=== PATIENT | male | born 1975 | race Caucasian/White ===

== ENCOUNTER 2016-12-24 13:45 | Emergency (ER) | payer SELFPAY ==
[~2016-12-24] VITALS: Ht 188 cm; Wt 106.6 kg
[2016-12-24 13:56] VITALS: BP 110/71
== END 2016-12-24 17:07 | disposition home or self-care (01) ==
LOC: ER 13:49
DX: J20.9 Acute bronchitis, unspecified (principal)

== ENCOUNTER 2018-02-20 01:36 | Emergency (ER) | payer SELFPAY ==
[~2018-02-20] VITALS: Ht 188 cm; Wt 99.8 kg
[2018-02-20] MEDS ORDERED: HYDROcodone-ACET 10/325MG TAB PO ONE ×2 (05:15→11:15)
[2018-02-20] MEDS ORDERED: TETANUS-DIPTH-ACEL PERTUSSIS 0.5ML SYRG IM ONE (05:15)
[2018-02-20] MEDS ORDERED: LIDOCAINE 1% (LOCAL ANESTH.) PF 5ml SDV IJ ONE (08:15)
[2018-02-20 10:16] LABS: Amphetamine Screen, Urine NEGATIVE (NEGATIVE); Barbiturate Scree,Urine NEGATIVE (NEGATIVE); Benzodiazephine Screen, Urine NEGATIVE (NEGATIVE); Cannabinoid Screen, Urine POSITIVE (NEGATIVE); Cocaine Screen, Urine NEGATIVE (NEGATIVE); Phencyclidine Screen, Urine NEGATIVE (NEGATIVE)
[2018-02-20 10:25] LABS: Opiate Scree,Urine NEGATIVE (NEGATIVE)
[2018-02-20] MEDS ORDERED: BACITRACIN-POLYMYXIN B TOPICAL OINT UD TOP ONE ×2 (11:18→11:30)
[2018-02-20 11:42] VITALS: BP 137/81
== END 2018-02-20 11:45 | disposition home or self-care (01) ==
LOC: EDBD 01:36 → ER 01:46
DX: S61.210A Laceration without foreign body of right index finger without damage to nail, initial encounter (principal); S61.011A Laceration without foreign body of right thumb without damage to nail, initial encounter; F10.129 Alcohol abuse with intoxication, unspecified; Y08.89XA Assault by other specified means, initial encounter; Y93.89 Activity, other specified; Y99.8 Other external cause status; Y92.89 Other specified places as the place of occurrence of the external cause; Z88.6 Allergy status to analgesic agent
CPT/HCPCS: 12001; 36415; 71101; 73130; 80307; 80320; 90471; 90715

== ENCOUNTER 2018-02-28 11:41 | Emergency (ER) | payer SELFPAY ==
[~2018-02-28] VITALS: Ht 190.5 cm; Wt 123.8 kg
[2018-02-28 12:58] VITALS: BP 151/88
== END 2018-02-28 13:16 | disposition home or self-care (01) ==
LOC: ER 11:41
DX: S61.011D Laceration without foreign body of right thumb without damage to nail, subsequent encounter (principal); S61.210D Laceration without foreign body of right index finger without damage to nail, subsequent encounter; X58.XXXD Exposure to other specified factors, subsequent encounter; Z88.6 Allergy status to analgesic agent

== ENCOUNTER 2018-03-04 16:56 | Emergency (ER) | payer SELFPAY ==
[~2018-03-04] VITALS: Ht 190.5 cm; Wt 103.0 kg
[2018-03-04 17:19] VITALS: BP 145/86
== END 2018-03-04 18:03 | disposition home or self-care (01) ==
LOC: ER 17:10
DX: S61.411D Laceration without foreign body of right hand, subsequent encounter (principal); F12.10 Cannabis abuse, uncomplicated; Z88.5 Allergy status to narcotic agent; W26.0XXD Contact with knife, subsequent encounter

== ENCOUNTER 2020-01-02 13:18 | Emergency (ER) | payer SELFPAY ==
[~2020-01-02] VITALS: Ht 188 cm; Wt 111.1 kg
[2020-01-02 13:34] VITALS: BP 132/91
== END 2020-01-02 15:35 | disposition home or self-care (01) ==
LOC: ER 13:18
DX: L42 Pityriasis rosea (principal); F12.10 Cannabis abuse, uncomplicated; Z88.6 Allergy status to analgesic agent

== ENCOUNTER 2020-10-07 09:41 | Emergency (ER) | payer SELFPAY ==
[~2020-10-07] VITALS: Ht 190.5 cm; Wt 108.9 kg
[2020-10-07 10:05] VITALS: BP 130/84
[2020-10-07] MEDS: diphenhdrAMINE HCL 25 MG CAP PO ONE (10:52)
[2020-10-07] MEDS: methylPREDNISolone SOD SUCC 125 MG/2 ML VL IM ONE (10:52)
== END 2020-10-07 11:21 | disposition home or self-care (01) ==
LOC: ER 09:41
DX: R21 Rash and other nonspecific skin eruption (principal); B99.8 Other infectious disease
CPT/HCPCS: 96372; 99283; J2930

== ENCOUNTER 2020-10-26 10:11 | Emergency (ER) | payer MEDICAID ==
[~2020-10-26] VITALS: Ht 162.6 cm; Wt 65.8 kg
[2020-10-26 10:51] VITALS: BP 142/81
== END 2020-10-26 11:13 | disposition home or self-care (01) ==
LOC: ER 10:11
DX: R21 Rash and other nonspecific skin eruption (principal); L29.9 Pruritus, unspecified; Z88.5 Allergy status to narcotic agent

== ENCOUNTER 2020-12-01 12:05 | Emergency (ER) | payer SELFPAY ==
[~2020-12-01] VITALS: Ht 188 cm; Wt 106.6 kg
[2020-12-01 12:33] VITALS: BP 149/99
== END 2020-12-01 13:28 | disposition home or self-care (01) ==
LOC: ER 12:05
DX: H10.32 Unspecified acute conjunctivitis, left eye (principal)

== ENCOUNTER 2020-12-07 14:58 | Emergency (ER) | payer SELFPAY ==
[~2020-12-07] VITALS: Ht 188 cm; Wt 108.9 kg
[2020-12-07 15:22] VITALS: BP 136/92
== END 2020-12-07 20:14 | disposition home or self-care (01) ==
LOC: ER 14:59
DX: H10.33 Unspecified acute conjunctivitis, bilateral (principal); F12.10 Cannabis abuse, uncomplicated